=== PATIENT | male | born 1935 | race Caucasian/White ===

== ENCOUNTER 2018-09-30 11:39 | Inpatient (IN) | payer BC ==
[2018-09-30] MEDS: ACETAMINOPHEN 325 MG TAB PO (13:15)
[2018-09-30 15:45] LABS: ADD MAN DIFF? NO
[2018-09-30 15:46] LABS: BASOPHILS % 0.2 % (0.0-2.0); HEMATOCRIT 48.4 % (42.0-52.0); HEMOGLOBIN 15.8 g/dl (14.0-18.0); LYMPHOCYTES # 1.1 10^3/ul (0.8-2.9); LYMPHOCYTES % 8.9 % (15.0-51.0); MEAN CORPUSCULAR HEMOGLOBIN 29.7 pg (29.0-33.0); MEAN CORPUSCULAR HGB CONC 32.6 g/dl (32.0-37.0); MEAN PLATELET VOLUME 10.3 fl (7.4-10.4); MONOCYTE # 0.9 10^3/ul (0.3-0.9); MONOCYTES % 7.2 % (0.0-11.0); NEUTROPHIL # 10.7 10^3/ul (1.6-7.5); NEUTROPHILS % 83.4 % (39.0-77.0); PLATELET COUNT 287 10^3/UL (140-415); RED BLOOD COUNT 5.32 10^6/ul (4.70-6.10); RED CELL DISTRIBUTION WIDTH 13.7 % (11.5-14.5)
[2018-09-30 15:46] LABS: WHITE BLOOD COUNT 12.8 10^3/ul (4.8-10.8)
[2018-09-30] MEDS: ONDANSETRON (ODT) 4 MG TAB ODT (15:53)
[2018-09-30] MEDS: HYDROCODONE/APAP (5/325) TAB PO ×2 (15:53→22:01)
[2018-09-30 16:08] LABS: ANION GAP 10 (5-13); BLOOD UREA NITROGEN 17 mg/dl (7-20); CALCIUM 9.6 mg/dl (8.4-10.2); CARBON DIOXIDE 27 mmol/L (21-31); CHLORIDE 104 mmol/L (97-110); CREATININE 0.81 mg/dl (0.61-1.24); GLUCOSE 123 mg/dl (70-220); POTASSIUM 3.8 mmol/L (3.5-5.1); SODIUM 141 mmol/L (135-144)
[2018-09-30] MEDS ORDERED: ONDANSETRON 4 MG INJ IV (17:30)
[2018-09-30] MEDS ORDERED: NACL 0.9% 3 ML SYG IV (17:30)
[2018-09-30] MEDS ORDERED: hydrALAzine 20 MG INJ IV (17:30)
[2018-09-30 18:42] LABS: HEMOGLOBIN A1C 5.4 % (0-5.9)
[2018-10-01 05:05] LABS: ADD MAN DIFF? NO
[2018-10-01 05:08] LABS: WHITE BLOOD COUNT 8.3 10^3/ul (4.8-10.8)
[2018-10-01 05:08] LABS: BASOPHILS % 0.4 % (0.0-2.0); EOSINOPHILS % 0.2 % (0.0-7.0); HEMATOCRIT 41.5 % (42.0-52.0); HEMOGLOBIN 13.5 g/dl (14.0-18.0); LYMPHOCYTES # 2.7 10^3/ul (0.8-2.9); LYMPHOCYTES % 32.3 % (15.0-51.0); MEAN CORPUSCULAR HEMOGLOBIN 29.5 pg (29.0-33.0); MEAN CORPUSCULAR HGB CONC 32.5 g/dl (32.0-37.0); MEAN CORPUSCULAR VOLUME 90.8 fl (82.0-101.0); MEAN PLATELET VOLUME 10.5 fl (7.4-10.4); MONOCYTE # 1.1 10^3/ul (0.3-0.9); MONOCYTES % 13.6 % (0.0-11.0); NEUTROPHIL # 4.4 10^3/ul (1.6-7.5); NEUTROPHILS % 53.4 % (39.0-77.0); PLATELET COUNT 249 10^3/UL (140-415); RED BLOOD COUNT 4.57 10^6/ul (4.70-6.10); RED CELL DISTRIBUTION WIDTH 13.9 % (11.5-14.5)
[2018-10-01 05:33] LABS: INR 1.11; PROTIME 14.4 Sec (11.9-14.9); PT RATIO 1.1
[2018-10-01 05:34] LABS: PARTIAL THROMBOPLASTIN TIME 35.2 Sec (23.0-35.0)
[2018-10-01 05:46] LABS: CHOL/HDL RATIO 4.8 RATIO; CHOLESTEROL 130 mg/dl (100-200); HDL CHOLESTEROL 27 mg/dl (31-75); LDL CHOLESTEROL,CALCULATED 92 mg/dl; MAGNESIUM 1.9 mg/dl (1.7-2.5); TRIGLYCERIDES 56 mg/dl (0-149)
[2018-10-01 05:46] LABS: PHOSPHORUS 3.8 mg/dl (2.5-4.9)
[2018-10-01 05:51] LABS: TROPONIN-I < 0.012 ng/ml (0.000-0.120)
[2018-10-01 05:55] LABS: ANION GAP 6 (5-13); BLOOD UREA NITROGEN 15 mg/dl (7-20); CALCIUM 8.6 mg/dl (8.4-10.2); CARBON DIOXIDE 29 mmol/L (21-31); CHLORIDE 105 mmol/L (97-110); CREATININE 0.75 mg/dl (0.61-1.24); GLUCOSE 95 mg/dl (70-220); POTASSIUM 3.9 mmol/L (3.5-5.1); SODIUM 140 mmol/L (135-144)
[2018-10-01] MEDS: AMLODIPINE 5 MG TAB PO (08:47)
[2018-10-01] MEDS: ENOXAPARIN 40 MG/0.4 ML SYG SC (08:47)
[2018-10-01] MEDS: HYDROCODONE/APAP (5/325) TAB PO (18:40)
[2018-10-01] MEDS: POLYETHYLENE GLYCOL 17 GM PACKET PO (20:24)
[2018-10-02 06:10] LABS: ADD MAN DIFF? NO
[2018-10-02 06:13] LABS: BASOPHILS % 0.4 % (0.0-2.0); EOSINOPHILS % 0.5 % (0.0-7.0); HEMATOCRIT 39.9 % (42.0-52.0); HEMOGLOBIN 13.2 g/dl (14.0-18.0); LYMPHOCYTES # 2.3 10^3/ul (0.8-2.9); LYMPHOCYTES % 30.6 % (15.0-51.0); MEAN CORPUSCULAR HEMOGLOBIN 29.9 pg (29.0-33.0); MEAN CORPUSCULAR HGB CONC 33.1 g/dl (32.0-37.0); MEAN CORPUSCULAR VOLUME 90.5 fl (82.0-101.0); MEAN PLATELET VOLUME 10.4 fl (7.4-10.4); MONOCYTE # 0.9 10^3/ul (0.3-0.9); MONOCYTES % 12.5 % (0.0-11.0); NEUTROPHIL # 4.2 10^3/ul (1.6-7.5); NEUTROPHILS % 55.7 % (39.0-77.0); PLATELET COUNT 222 10^3/UL (140-415); RED BLOOD COUNT 4.41 10^6/ul (4.70-6.10); RED CELL DISTRIBUTION WIDTH 13.8 % (11.5-14.5)
[2018-10-02 06:13] LABS: WHITE BLOOD COUNT 7.5 10^3/ul (4.8-10.8)
[2018-10-02 06:45] LABS: MAGNESIUM 1.9 mg/dl (1.7-2.5)
[2018-10-02 06:45] LABS: PHOSPHORUS 3.3 mg/dl (2.5-4.9)
[2018-10-02 07:09] LABS: ANION GAP 7 (5-13); BLOOD UREA NITROGEN 14 mg/dl (7-20); CALCIUM 8.6 mg/dl (8.4-10.2); CARBON DIOXIDE 30 mmol/L (21-31); CHLORIDE 101 mmol/L (97-110); CREATININE 0.75 mg/dl (0.61-1.24); GLUCOSE 99 mg/dl (70-220); POTASSIUM 3.5 mmol/L (3.5-5.1); SODIUM 138 mmol/L (135-144)
[2018-10-02] MEDS: HYDROCODONE/APAP (5/325) TAB PO (08:52)
[2018-10-02] MEDS: AMLODIPINE 5 MG TAB PO (08:52)
[2018-10-02] MEDS: POLYETHYLENE GLYCOL 17 GM PACKET PO ×2 (08:52→21:10)
[2018-10-02] MEDS: ENOXAPARIN 40 MG/0.4 ML SYG SC (08:53)
[2018-10-02] MEDS: DEXTROSE 5%-0.45% NACL 1,000 ML IV (18:56)
[2018-10-03] MEDS: DEXTROSE 5%-0.45% NACL 1,000 ML IV ×2 (08:20→09:44)
[2018-10-03] MEDS: ENOXAPARIN 40 MG/0.4 ML SYG SC (09:00)
[2018-10-03] MEDS: POLYETHYLENE GLYCOL 17 GM PACKET PO ×2 (09:00→21:07)
[2018-10-03] MEDS: AMLODIPINE 5 MG TAB PO ×2 (09:00→22:07)
[2018-10-03] MEDS ORDERED: GLYCOPYRROLATE 0.4 MG INJ (16:00)
[2018-10-03] MEDS ORDERED: PHENYLephrine (100 MCG/ML) 10ML SYG (16:00)
[2018-10-03] MEDS ORDERED: SEVOFLURANE 15 MIN (16:00)
[2018-10-03] MEDS ORDERED: EPHEDrine 25 MG/5 ML SYG (16:00)
[2018-10-03] MEDS ORDERED: LIDOCAINE 2% (SDV) 5 ML INJ (16:21)
[2018-10-03] MEDS ORDERED: MIDAZOLAM 1 MG/ML 2 ML INJ (16:21)
[2018-10-03] MEDS ORDERED: PROPOFOL 20 ML (16:21)
[2018-10-03] MEDS ORDERED: FENTAnyl 50 MCG/ML VIAL (16:21)
[2018-10-03] MEDS ORDERED: CEFAZOLIN 1 GM INJ (16:21)
[2018-10-03] MEDS ORDERED: DEXAMETHASONE 4 MG/ML 5 ML INJ (16:21)
[2018-10-03] MEDS ORDERED: ONDANSETRON 4 MG INJ (16:21)
[2018-10-03] MEDS: POLYMYXIN/BACITRACIN 1L IRRIG (17:20)
[2018-10-03] MEDS ORDERED: NACL 0.9% 3 ML SYG IV (18:00)
[2018-10-03] MEDS ORDERED: ONDANSETRON 4 MG INJ IV (18:00)
[2018-10-03] MEDS ORDERED: FENTAnyl 50 MCG/ML VIAL IV (18:00)
[2018-10-04] MEDS: DEXTROSE 5%-0.45% NACL 1,000 ML IV ×2 (03:20→11:00)
[2018-10-04] MEDS: POLYETHYLENE GLYCOL 17 GM PACKET PO ×2 (08:47→22:55)
[2018-10-04] MEDS: ENOXAPARIN 40 MG/0.4 ML SYG SC (08:47)
[2018-10-04] MEDS: AMLODIPINE 5 MG TAB PO (08:47)
[2018-10-04] MEDS ORDERED: PROPOFOL 40 ML (15:44)
[2018-10-04] MEDS ORDERED: FENTAnyl 50 MCG/ML VIAL (15:44)
[2018-10-04] MEDS ORDERED: CEFAZOLIN 1 GM INJ (15:44)
[2018-10-04] MEDS ORDERED: ROPIVACAINE 0.2% 20 ML VIAL (16:12)
[2018-10-04] MEDS ORDERED: HETASTARCH 6% NACL 500 ML (16:31)
[2018-10-04] MEDS: POLYMYXIN/BACITRACIN 1L IRRIG (17:18)
[2018-10-04] MEDS ORDERED: HYDROmorphONE 0.5 MG/0.5 ML SYG IV (20:30)
[2018-10-04] MEDS ORDERED: MEPERIDINE 25 MG INJ IV (20:30)
[2018-10-04] MEDS ORDERED: hydrALAzine 20 MG INJ IV (20:30)
[2018-10-04] MEDS ORDERED: FENTAnyl 50 MCG/ML VIAL IV ×2 (20:30)
[2018-10-04] MEDS ORDERED: ONDANSETRON 4 MG INJ IV ×2 (20:30)
[2018-10-04] MEDS ORDERED: EPHEDrine 25 MG/5 ML SYG IV (20:30)
[2018-10-04] MEDS ORDERED: NALBUPHINE HCL (10 MG/1 ML) INJ IV (20:30)
[2018-10-04] MEDS ORDERED: DIPHENHYDRAMINE 50 MG INJ IV ×2 (20:30)
[2018-10-04] MEDS ORDERED: morphine 2 MG INJ IV ×2 (20:30)
[2018-10-04] MEDS ORDERED: LABETALOL HCL 20MG INJ IV (20:30)
[2018-10-04] MEDS ORDERED: ACETAMINOPHEN 500 MG TAB PO (20:30)
[2018-10-04] MEDS ORDERED: NALOXONE (0.4 MG/ML) INJ IV (20:30)
[2018-10-04] MEDS ORDERED: HYDROmorphONE 1 MG/5 ML IV SYRINGE IV ×2 (20:30)
[2018-10-04] MEDS ORDERED: HYDROCODONE/APAP (5/325) TAB PO ×2 (20:30→21:00)
[2018-10-04] MEDS ORDERED: OXYCODONE/ACETAMINOPHEN (5/325) TAB PO (20:30)
[2018-10-04] MEDS ORDERED: NACL 0.9% 3 ML SYG IV (21:00)
[2018-10-04] MEDS: morphine 4 MG/ML VIAL IV (22:55)
[2018-10-04] MEDS: CEFAZOLIN 1 GM/50 ML (PMX) 50 ML IVPB (22:55)
[2018-10-04] MEDS: SOD CHLORIDE 0.9% 1,000 ML IV (22:59)
[2018-10-05] MEDS: DEXTROSE 5%-0.45% NACL 1,000 ML IV ×2 (01:10→13:40)
[2018-10-05] MEDS: CEFAZOLIN 1 GM/50 ML (PMX) 50 ML IVPB ×2 (05:09→13:04)
[2018-10-05 06:06] LABS: HEMATOCRIT 33.5 % (42.0-52.0); HEMOGLOBIN 10.9 g/dl (14.0-18.0)
[2018-10-05 06:40] LABS: ANION GAP 6 (5-13); BLOOD UREA NITROGEN 9 mg/dl (7-20); CALCIUM 7.9 mg/dl (8.4-10.2); CARBON DIOXIDE 31 mmol/L (21-31); CHLORIDE 101 mmol/L (97-110); CREATININE 0.71 mg/dl (0.61-1.24); GLUCOSE 124 mg/dl (70-220); POTASSIUM 3.3 mmol/L (3.5-5.1); SODIUM 138 mmol/L (135-144)
[2018-10-05] MEDS: AMLODIPINE 5 MG TAB PO (08:39)
[2018-10-05] MEDS: POLYETHYLENE GLYCOL 17 GM PACKET PO ×2 (08:40→21:25)
[2018-10-05] MEDS: morphine 4 MG/ML VIAL IV (08:41)
[2018-10-05] MEDS: ENOXAPARIN 40 MG/0.4 ML SYG SC (08:50)
[2018-10-05] MEDS: POTASSIUM CHLORIDE (SR) 20 MEQ TAB PO (11:28)
[2018-10-05] MEDS: BISACODYL (EC) 5 MG TAB PO (11:28)
[2018-10-05] MEDS ORDERED: NA PHOSPHATE/BIPHOS 133 ML ENEMA PR (11:30)
[2018-10-05 12:11] LABS: MAGNESIUM 1.6 mg/dl (1.7-2.5)
[2018-10-05] MEDS: ACETAMINOPHEN 325 MG TAB PO (21:31)
[2018-10-06 05:21] LABS: ADD MAN DIFF? NO
[2018-10-06 05:25] LABS: BASOPHILS % 0.2 % (0.0-2.0); EOSINOPHILS % 0.2 % (0.0-7.0); HEMATOCRIT 31.8 % (42.0-52.0); HEMOGLOBIN 10.6 g/dl (14.0-18.0); LYMPHOCYTES # 1.8 10^3/ul (0.8-2.9); LYMPHOCYTES % 21.1 % (15.0-51.0); MEAN CORPUSCULAR HEMOGLOBIN 30.4 pg (29.0-33.0); MEAN CORPUSCULAR HGB CONC 33.3 g/dl (32.0-37.0); MEAN CORPUSCULAR VOLUME 91.1 fl (82.0-101.0); MEAN PLATELET VOLUME 11.5 fl (7.4-10.4); MONOCYTE # 1.2 10^3/ul (0.3-0.9); MONOCYTES % 13.6 % (0.0-11.0); NEUTROPHIL # 5.5 10^3/ul (1.6-7.5); NEUTROPHILS % 64.5 % (39.0-77.0); PLATELET COUNT 208 10^3/UL (140-415); RED BLOOD COUNT 3.49 10^6/ul (4.70-6.10); RED CELL DISTRIBUTION WIDTH 13.9 % (11.5-14.5)
[2018-10-06 05:25] LABS: WHITE BLOOD COUNT 8.5 10^3/ul (4.8-10.8)
[2018-10-06 05:55] LABS: PHOSPHORUS 3.3 mg/dl (2.5-4.9)
[2018-10-06 05:55] LABS: MAGNESIUM 1.8 mg/dl (1.7-2.5)
[2018-10-06 05:57] LABS: ANION GAP 3 (5-13); BLOOD UREA NITROGEN 10 mg/dl (7-20); CARBON DIOXIDE 33 mmol/L (21-31); CHLORIDE 98 mmol/L (97-110); CREATININE 0.74 mg/dl (0.61-1.24); GLUCOSE 106 mg/dl (70-220); POTASSIUM 3.7 mmol/L (3.5-5.1); SODIUM 134 mmol/L (135-144)
[2018-10-06] MEDS: POLYETHYLENE GLYCOL 17 GM PACKET PO (08:22)
[2018-10-06] MEDS: AMLODIPINE 5 MG TAB PO (08:22)
[2018-10-06] MEDS: ENOXAPARIN 40 MG/0.4 ML SYG SC (08:22)
[2018-10-06] MEDS: morphine 2 MG INJ IV (08:23)
[2018-10-06] MEDS: HYDROmorphONE 0.5 MG/0.5 ML SYG IV (12:41)
== END 2018-10-06 18:29 | disposition home health service (06) | DRG 494 ==
LOC: FTE 11:39 → PP2 16:00
PROC: 0QSK04Z Reposition Left Fibula with Internal Fixation Device, Open Approach (ICD-10-PCS; principal; 2018-10-03 16:51)
PROC: 0QSH04Z Reposition Left Tibia with Internal Fixation Device, Open Approach (ICD-10-PCS; 2018-10-03 16:51)
DX: S82.452A Displaced comminuted fracture of shaft of left fibula, initial encounter for closed fracture (principal); S82.302A Unspecified fracture of lower end of left tibia, initial encounter for closed fracture; I10 Essential (primary) hypertension; D72.829 Elevated white blood cell count, unspecified; W18.39XA Other fall on same level, initial encounter
CPT/HCPCS: 36415; 71045; 73590; 73600-LT; 73610; 80048; 80061; 83036; 83735; 84100; 84484; 85014; 85018; 85025; 85610; 85730; 93005; 93306; 97110; 97162; 97530; 99285-25